=== PATIENT | male | born 1985 | race Caucasian/White ===

== ENCOUNTER → 2017-07-01 12:21 | Outpatient (CLI) | payer OTHER, SELFPAY ==
[2017-07-01 13:07] LABS: Alanine Aminotransferase 44 U/L (12-78); Albumin/Globulin Ratio 0.9 (1.1-1.8); Alkaline Phosphatase 79 U/L (46-116); Aspartate Amino Transferase 22 U/L (15-37); Bilirubin,Total 0.2 mg/dL (0.2-1.0); Blood Urea Nitrogen 11 mg/dL (7-18); Carbon Dioxide 30 mmol/L (21.0-32.0); Chloride 102 mmol/L (98-107); Cholesterol 189 mg/dL (140-200); Creatinine,Serum 1.04 mg/dL (0.70-1.30); Estimated Glomerular Filt Rate 84 ml/min (>60); GFR (African American) 101 ML/MIN (>60); Globulin 4.3 gm/dl (1.3-3.2); Glucose 94 mg/dL (74-106); HDL Cholesterol 38 mg/dL (27-67); LDL Cholesterol 140 mg/dL (0-130); Sodium 137 mmol/L (136-145); Total Protein,Serum 8.3 gm/dL (6.4-8.2); Triglycerides 55 mg/dL (30-200); VLDL Cholesterol 11 mg/dL (0-40)
== END ==
PROVIDERS: PCP Internal Medicine Adolescent Medicine; Visit Provider Internal Medicine Adolescent Medicine
DX: I10 Essential (primary) hypertension (principal)
CPT/HCPCS: 36415; 80053; 80061

== ENCOUNTER → 2018-08-22 08:54 | Outpatient (CLI) | payer OTHER, SELFPAY ==
--- NOTE | 2018-08-22 09:16 | US_ITS ---
US abdomen limited History:Right upper quadrant pain Ordering Physician:Antonio Wei MD Patient Age: 33 years Comparison:None Findings: Pancreas:Not well-demonstrated due to overlying bowel gas Liver:Unremarkable. No obvious mass or abnormal fluid collection. No ductal dilatation Right Kidney:Unremarkable. Normal size and echogenicity. No hydronephrosis Gallbladder:No gallstones, gallbladder wall thickening, pericholecystic fluid, or biliary dilatation. There are several 2 small gallbladder polyps measuring up to 6 mm. Impression: 1. Gallbladder polyps. No stones apparent. No biliary dilatation.
[2018-08-22 09:27] LABS: Basophils # 0.1 K/mm3 (0-0.2); Basophils % 0.8 % (0.1-2.0); Eosinophils # 0.1 K/mm3 (0.0-0.4); Eosinophils % 0.7 % (0.1-12.0); Hematocrit 44.1 % (42.0-52.0); Hemoglobin 15.1 g/dL (14.1-18.0); Lymphocytes # 2.7 K/mm3 (0.7-4.5); Lymphocytes % 34.6 % (10-50); Mean Corpuscular HGB Conc 34.3 g/dL (31.8-35.4); Mean Corpuscular Hemoglobin 27.8 pg (27.0-31.2); Mean Corpuscular Volume 81.1 fl (80-94); Mean Platelet Volume 7.6 fl (7.4-10.4); Monocytes # 0.5 K/mm3 (0.1-1.0); Monocytes % 6.4 % (1.7-9.3); Neutrophils # 4.5 K/mm3 (1.8-7.8); Neutrophils % 57.5 % (37.0-80.0); Platelet Count 232 K/mm3 (142-424); Red Blood Count 5.44 M/mm3 (4.60-6.20); Red Cell Distribution Width 13.9 % (11.5-17.5); White Blood Count 7.8 K/mm3 (4.8-10.8)
[2018-08-22 09:41] LABS: Alanine Aminotransferase 43 U/L (12-78); Alkaline Phosphatase 70 U/L (46-116); Amylase 29 U/L (25-115); Aspartate Amino Transferase 23 U/L (15-37); Bilirubin,Total 0.7 mg/dL (0.2-1.0); Calcium 9.1 mg/dL (8.5-10.1); Carbon Dioxide 29 mmol/L (21.0-32.0); Chloride 102 mmol/L (98-107); Estimated Glomerular Filt Rate 78 ml/min (>60); GFR (African American) 94 ML/MIN (>60); Globulin 4.1 gm/dl (1.3-3.2); Glucose 94 mg/dL (74-106); Lipase 56 u/L (73-393); Sodium 140 mmol/L (136-145); Total Protein,Serum 8.1 gm/dL (6.4-8.2)
[2018-08-22 10:25] LABS: Blood Urea Nitrogen 14 mg/dL (7-18)
== END ==
PROVIDERS: PCP Internal Medicine Adolescent Medicine; Visit Provider Internal Medicine Adolescent Medicine
DX: R10.11 Right upper quadrant pain (principal)
CPT/HCPCS: 36415; 76705; 80053; 82150; 83690; 85025

== ENCOUNTER → 2018-09-07 10:09 | Outpatient (CLI) | payer OTHER, SELFPAY ==
--- NOTE | 2018-09-07 10:20 | NM_ITS ---
NM hepatobiliary w pharm HISTORY: Right upper quadrant pain, abnormal gallbladder ultrasound with polyps ITS.REASON: ABD PAIN ORDERING PHYSICIAN: Antonio Wei MD PATIENT AGE: 33 years COMPARISON: None DOSE: 7.93 mCi technetium Choletec 2.7 mcg of CCK FINDINGS: Homogeneous activity is present within the hepatic parenchyma. Activity is present in the gallbladder by 30 minutes. Activity is present in the small bowel by minutes. The gallbladder ejection fraction is calculated to be 57% The patient did not report pain or other symptoms during CCK infusion. IMPRESSION: Unremarkable hepatobiliary scan and gallbladder ejection fraction. No evidence of common or cystic duct obstruction with normal gallbladder ejection fraction
--- NOTE | 2018-09-07 12:35 | HMH.ITSHM ---
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 [] LISINOPRIL
== END ==
PROVIDERS: PCP Internal Medicine Adolescent Medicine; Visit Provider Internal Medicine Adolescent Medicine
DX: R10.11 Right upper quadrant pain (principal)
CPT/HCPCS: 78227; A9537; J2805

== ENCOUNTER → 2019-06-29 11:29 | Outpatient (CLI) | payer BC, SELFPAY ==
[2019-06-29 12:49] LABS: Basophils # 0.1 K/mm3 (0-0.2); Basophils % 0.8 % (0.1-2.0); Eosinophils # 0.1 K/mm3 (0.0-0.4); Eosinophils % 1.4 % (0.1-12.0); Hematocrit 44.4 % (42.0-52.0); Hemoglobin 15.1 g/dL (14.1-18.0); Lymphocytes # 2.2 K/mm3 (0.7-4.5); Lymphocytes % 30.6 % (10-50); Mean Corpuscular HGB Conc 33.9 g/dL (31.8-35.4); Mean Corpuscular Hemoglobin 27.3 pg (27.0-31.2); Mean Corpuscular Volume 80.6 fl (80-94); Monocytes # 0.4 K/mm3 (0.1-1.0); Monocytes % 6.2 % (1.7-9.3); Neutrophils # 4.3 K/mm3 (1.8-7.8); Platelet Count 222 K/mm3 (142-424); Red Blood Count 5.51 M/mm3 (4.60-6.20); Red Cell Distribution Width 13.7 % (11.5-17.5); White Blood Count 7.1 K/mm3 (4.8-10.8)
[2019-06-29 15:09] LABS: Alanine Aminotransferase 32 U/L (12-78); Albumin Level 4.5 g/dl (3.5-5.0); Albumin/Globulin Ratio 1.5 (1.1-1.8); Alkaline Phosphatase 71 U/L (38-126); Anion Gap 13.5 mEq/L (5-15); Aspartate Amino Transferase 32 U/L (17-59); Bilirubin,Total 0.5 mg/dl (0.2-1.3); Blood Urea Nitrogen 16 mg/dl (9-20); Calcium 9.7 mg/dl (8.4-10.2); Carbon Dioxide 27 mmol/L (22.0-30.0); Chloride 101 mmol/L (98-107); Chol/HDL Ratio 5.4 (1-3.5); Cholesterol 195 mg/dl (140-200); Estimated Glomerular Filt Rate 98 ml/min (>60); GFR (African American) 118 ML/MIN (>60); Globulin 3.1 g/dL (1.3-3.2); Glucose 85 mg/dl (74-100); HDL Cholesterol 36 mg/dl (40-60); Potassium 4.5 mmoL/L (3.5-5.1); Sodium 137 mmol/L (136-145); Total Protein,Serum 7.6 g/dl (6.3-8.2); Triglycerides 69 mg/dl (30-150); VLDL Cholesterol 14 mg/dL (0-40)
[2019-06-29 15:20] LABS: Direct LDL Cholesterol 152.18 mg/dL (100-129)
== END ==
PROVIDERS: Visit Provider Internal Medicine Adolescent Medicine
DX: Z00.00 Encounter for general adult medical examination without abnormal findings (principal); I10 Essential (primary) hypertension
CPT/HCPCS: 36415; 80053; 80061; 85025

== ENCOUNTER 2020-12-20 20:01 | Emergency (ER) | payer BC, SELFPAY ==
[2020-12-20 21:29] VITALS: BP 159/102; PULSE 107; RESP 18; TEMP 36.8; O2SAT 98; BMI 44.3
[2020-12-20 21:38] VITALS: BP 159/102; PULSE 97; RESP 18; TEMP 36.8
--- NOTE | 2020-12-20 21:49 | HMH.EDUTC ---
[facility] Disposition Clinical Impression: Exposure to COVID-19 virus Disposition: Home, Self-Care Condition on Discharge: Good Instructions: DI for COVID-19 (Suspected or Confirmed ), Preventing the Spread of Coronavirus Discharge Instructions Additional Instructions: Drink plenty of fluids. Take tylenol for pain or fever. Return if you begin to have difficulty breathing. Follow up with your regular doctor. GO TO THE ER FOR ANY WORSENING SYMPTOMS Quarantine until you know the results of your covid-19 test. If it is positive, the health department should call you and give you further instructions about your length of Quarantine and other things. Notify your school or workplace of your results and follow their instructions regarding return to work/school. Referrals: Antonio Wei MD [Primary Care Provider] - Time of Disposition: 21:50 Medical Decision Making - Medical Records Medical records reviewed: No: I reviewed the patient's medical records. - Franky Inquiry Pt receiving controlled substance: No Vital Signs: 12/20/20 21:29 12/20/20 21:38 Temperature 98.2 F 98.3 F Temperature Source Oral Pulse Rate 97 H Pulse Rate [Left] 107 H Respiratory Rate 18 18 Blood Pressure 159/102 H Blood Pressure [Right Arm] 159/102 H Blood Pressure Mean [Right Arm] 121 02 Sat by Pulse Oximetry 98 Orders (Tests/Meds): ORDERS Category Date Time Status Covid-19 Nasal PCR ([facility]) Routine Lab 12/20/20 21:33 Received [facility] HPI - General Stated complaint: covid test Time Seen by Provider: 12/20/20 21:50 Mode of Arrival: Ambulatory Source of Information: Patient Limitations: No Limitations Description of Symptoms (Recalled from Triage Doc. by RN): PT IS ASYMPTOMATIC. 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 HEENT Symptoms (Recalled from RN notes): No Resp Symptoms (Recalled from RN notes): No Skin Symptoms (Recalled from RN notes): No MS Symptoms (Recalled from RN notes): No Functional Status (Recalled from RN notes): NA - History of Present Illness Provider Complaint: She is here to be tested for covid. She denies any symptoms. She was exposed at her job. - Related Data Allergies Allergy/AdvReac Type Severity Reaction Status Date / Time atropine Allergy Unknown S-ANAPHYLAX Verified 10/10/18 13:33 [From [facility] (REFORMULATED)] IS chlorpheniramine Allergy Unknown S-ANAPHYLAX Verified 10/10/18 13:33 [From [facility] (REFORMULATED)] IS hyoscyamine Allergy Unknown S-ANAPHYLAX Verified 10/10/18 13:33 [From [facility] (REFORMULATED)] IS pseudoephedrine Allergy Unknown S-ANAPHYLAX Verified 10/10/18 13:33 [From [facility] (REFORMULATED)] IS scopolamine Allergy Unknown S-ANAPHYLAX Verified 10/10/18 13:33 [From [facility] (REFORMULATED)] IS - Worker's Comp Is this a Worker's Comp case?: No H History - Hepatitis A Screen Drug use history?: No High risk sexual behaviors?: No History of sexually transmitted infection?: No Currently employed?: No Childcare worker?: No Do you have indoor plumbing?: Yes Do you have electricity?: Yes Attestation statement:: This patient has been screened for Hepatitis A risk factors. I have reviewed the patient's past medical history: Yes ROS Obtained: Yes All systems reviewed & no additional complaints - Constitutional Constitutional: Reports system reviewed and no additional complaints, except as docu - Eyes Eyes: Reports system reviewed and no additional complaints, except as docu - ENT Ears, Nose, Mouth, and Throat: Reports system reviewed and no additional complaints, except as docu - Cardiovascular Cardiovascular: Reports system reviewed and no additional complaints, except as docu - Respiratory Respiratory: Reports system reviewed and no additional complaints, except as docu - Gastrointestinal Gastrointestingal: Reports: system reviewed and no additional complaints, except as docu Physical Exam - General General appear
== END 2020-12-20 22:09 | disposition home or self-care (01) ==
PROVIDERS: Emergency Provider Nurse Practitioner Family; PCP Internal Medicine Adolescent Medicine
DX: Z20.822 Contact with and (suspected) exposure to COVID-19 (principal)
CPT/HCPCS: 99202; G0463; U0003

== ENCOUNTER → 2022-11-26 12:59 | Outpatient (CLI) | payer OTHER, SELFPAY ==
[2022-11-26 13:33] LABS: Basophils # 0.1 K/mm3 (0-0.2); Basophils % 0.7 % (0.1-2.0); Eosinophils # 0.1 K/mm3 (0.0-0.4); Eosinophils % 1.5 % (0.1-12.0); Hemoglobin 15.1 g/dL (14.1-18.0); Lymphocytes # 2.1 K/mm3 (0.7-4.5); Lymphocytes % 26.6 % (10-50); Mean Corpuscular HGB Conc 32.9 g/dL (31.8-35.4); Mean Corpuscular Hemoglobin 26.6 pg (27.0-31.2); Mean Platelet Volume 8.1 fl (7.4-10.4); Monocytes # 0.6 K/mm3 (0.1-1.0); Monocytes % 6.9 % (1.7-9.3); Neutrophils # 5.2 K/mm3 (1.8-7.8); Neutrophils % 64.3 % (37.0-80.0); Platelet Count 267 K/mm3 (142-424); Red Blood Count 5.68 M/mm3 (4.60-6.20); White Blood Count 8.1 K/mm3 (4.8-10.8)
[2022-11-26 14:33] LABS: Chloride 100 mmol/L (98-107); Sodium 141 mmol/L (136-145)
[2022-11-26 14:36] LABS: Alanine Aminotransferase 26 U/L (12-78); Alkaline Phosphatase 87 U/L (38-126); Anion Gap 9.6 mEq/L (5-15); Aspartate Amino Transferase 26 U/L (17-59); Bilirubin,Total 0.8 mg/dl (0.2-1.3); Blood Urea Nitrogen 14 mg/dl (9-20); Carbon Dioxide 35 mmol/L (22.0-30.0); Estimated Glomerular Filt Rate 96 ml/min (>60); GFR (African American) 116 ML/MIN (>60); Lipase 40 U/L (23-300); Potassium 3.6 mmoL/L (3.5-5.1)
[2022-11-26 14:37] LABS: Albumin Level 4.3 g/dl (3.5-5.0); Albumin/Globulin Ratio 1.4 (1.1-1.8); Calcium 9.5 mg/dl (8.4-10.2); Globulin 3.1 g/dL (1.3-3.2); Glucose 85 mg/dl (74-100); Total Protein,Serum 7.4 g/dl (6.3-8.2)
[2022-11-26 15:09] LABS: Thyroid Stimulating Hormone 0.14 uIU/mL (0.465-4.68)
== END ==
PROVIDERS: PCP Internal Medicine Adolescent Medicine; Visit Provider Physician Assistant
DX: R10.84 Generalized abdominal pain (principal); R19.7 Diarrhea, unspecified
CPT/HCPCS: 36415; 80053; 83690; 84439; 84443; 85025

== ENCOUNTER → 2022-12-14 06:58 | Outpatient (CLI) | payer OTHER, SELFPAY ==
[2022-12-14 07:17] LABS: Adenovirus F 40/41, stool Not Detected (NotDetected); Astrovirus Not Detected (NotDetected); Campylobacter Not Detected (NotDetected); Clostridium Difficile A/B, PCR Not Detected (NotDetected); Cryptosporidium Not Detected (NotDetected); Cyclospora Cayetanesis Not Detected (NotDetected); Entamoeba histolytica Not Detected (NotDetected); Enteroaggregative E coli Not Detected (NotDetected); Enterotoxigenic E coli Not Detected (NotDetected); Giardia lamblia Not Detected (NotDetected); Norovirus Not Detected (NotDetected); Plesimonas Shigalloides, PCR Not Detected (NotDetected); Rotavirus A Not Detected (NotDetected); Salmonella, PCR Not Detected (NotDetected); Sapovirus Not Detected (NotDetected); Shiga-like toxin E coli Not Detected (NotDetected); Shigella Enterovasive E coli Not Detected (NotDetected); Vibrio Cholerae Not Detected (NotDetected); Vibrio, PCR Not Detected (NotDetected); Yersinia Entercolitica, PCR Not Detected (NotDetected)
[2022-12-14 09:00] LABS: Occult Blood,Stool Positive (Negative)
[2022-12-14 13:55] LABS: Enteropathogenic E coli Detected (NotDetected)
[2022-12-17 15:57] LABS: Lactoferrin, Fecal, Quant. 9.03 ug/mL(g) (0.00-7.24)
== END ==
PROVIDERS: PCP Internal Medicine Adolescent Medicine; Visit Provider Nurse Practitioner Family
DX: R10.84 Generalized abdominal pain (principal); R19.7 Diarrhea, unspecified; R19.5 Other fecal abnormalities; A04.0 Enteropathogenic Escherichia coli infection
CPT/HCPCS: 82272; 83630; 87507; G0328

== ENCOUNTER 2023-03-04 08:54 | Day surgery (SDC) | payer OTHER, SELFPAY ==
[2023-03-04] VITALS (7 sets, daily range): BP systolic 112–157; BP diastolic 68–99; PULSE 76–102; RESP 16–18; TEMP 36.3–36.6; O2SAT 92–100; BMI 42.5
--- NOTE | 2023-03-04 09:36 | EXP.ANES.CKL ---
[facility] Disclaimer: The information contained in this section may have been updated after the patient was seen, as this information can be updated by other users. Medical History (Updated 03/04/23 @ 09:14 by Jas Flowers RN) HLD (hyperlipidemia) HTN (hypertension) Surgical History (Updated 03/04/23 @ 09:14 by Jas Flowers RN) History of appendectomy Hx of LASIK Family History (Updated 03/04/23 @ 09:15 by Jas Flowers RN) Other Family history of cancer Family history of diabetes mellitus Family history of heart disease Social History (Updated 03/04/23 @ 09:16 by Jas Flowers RN) Smoking Status: Never smoker alcohol intake: never substance use type: denies use current occupational status: employed Travel in the last 8 weeks: Inside the [place] [facility] Anesthesia Checklist Patient Identification Patient Identification: Arm Band Structural Data Admitted From: Home Planned Operative Procedure/s: colonoscopy Consent for Planned Operative Procedure(s) Verified: Yes Verified Documents: Surgical Consent and History and Physical NPO Status Verified Time NPO: 00:00 Additional verifications Anesthesia Reactions: No Airway Assessment Mallampati Score:: Class II C-Spine Mobility Assessed: Yes TMJ Mobility Assessed: Yes Dentition: Good Dentition Neurological Assessment Level of Consciousness: Awake and Alert Anesthesia Plan Anesthesia Risk discussed: Yes Anesthesia Plan: Verified ASA Class: III Anesthesia Type: MAC
--- NOTE | 2023-03-04 10:31 | P.PCN_ITS ---
Procedure: Date: 03/04/23 Patient Date of :: 1985 Procedure Performed:: Total colonoscopy to terminal ileum with multiple biopsies Indications:: Patient is a 37-year-old male. He was scheduled for screening colonoscopy. Apparently he had some change in bowel habits with diarrhea and mucousy bowel movements. He was diagnosed with enteropathogenic E. coli in November and treated. He has not had return of normal bowel function but his symptoms have improved. He was scheduled for screening colonoscopy with general surgery. Performing Provider:: Valeriy Mendoza MD Referring Provider:: Mikayla Garcia Sedation:: MAC sedation Procedure:: Patient history was obtained and appropriate physical examination was performed. Patient's medications and allergies were reviewed. Informed consent was obtai merry after explaining the benefits, alternatives, and risks of the procedure including, but not limited to, bleeding, perforation, missed lesions, and adverse reaction to anesthesia medications. Patient was transported to endoscopy procedure room. Patient was connected to monitoring devices. Throughout the procedure the patient's blood pressure, pulse, and oxygen saturations were monitored continuously. Patient identification and planned procedure were verified by the staff. Patient was positioned in lateral decubitus position. Digital anorectal exam was performed. Variable stiffness Olympus colonoscope was inserted and advanced under direct visualization to the cecum. Adequacy of the colonic preparation was noted. The colonoscope was advanced a short distance into the terminal ileum. The colonoscope was then slowly withdrawn while carefully examining the color, texture, anatomy, and integrity of the mucosoa circumferentially. Within the rectum retroflexion was performed. Colonoscope was then withdrawn. . Multiple biopsies were obtained in the terminal ileum which appeared normal. There was some mildly inflamed appearing mucosa throughout the colon. This seems to be more prominent in the rectosigmoid. Several biopsies were obtained differentiating right, left, and rectosigmoid colon to assess for microscopic colitis. . Findings:: Findings consistent with resolving diffuse mild colitis. Biopsies performed Recommendations:: Treat according to histopathologic analysis. Complications:: None Estimated blood obtained (mL): 2 Colonoscopy Component Colonoscopy Component Was a colonoscopy performed during today's procedure?: Yes Recommended follow up colonoscopy of at least 10 years?: Yes
--- NOTE | 2023-03-04 11:48 | P.PNANES_ITS ---
[facility] Anesthesia Record Part I Anesthesia Record I Intake, IV Amount: 400 Hydration: Adequate Estimated blood loss (mL): 1 Urine output (mL): 0 Blood Products used (#): none Blood Pressure: 123/76 SaO2: 92 Pulse Rate: 82 Airway Patency: Patent Respiratory Rate: 18 Temperature: 97.8 F Patient is:: Awake and Stable Stable to PACU at:: 09:49
== END 2023-03-04 11:00 | disposition home or self-care (01) ==
PROVIDERS: PCP Internal Medicine Adolescent Medicine; Visit Provider Surgery
PROC: 0DJD8ZZ Inspection of Lower Intestinal Tract, Via Natural or Artificial Opening Endoscopic (ICD-10-PCS; CPT 45378; principal; 2023-03-04 10:30)
DX: Z12.11 Encounter for screening for malignant neoplasm of colon (principal); K63.89 Other specified diseases of intestine; Z86.19 Personal history of other infectious and parasitic diseases
CPT/HCPCS: 45378; J2704

== ENCOUNTER 2023-06-04 08:29 | Outpatient (CLI) | payer OTHER, SELFPAY ==
[2023-06-08 21:09] LABS: Calprotectin, Fecal 17 ug/g (0-120)
[2023-06-10 13:11] LABS: Pancreatic Elastase, Fecal 222 (>200)
== END 2023-06-04 23:59 ==
LOC: LAB 08:31
PROVIDERS: PCP Physician Assistant; Visit Provider Nurse Practitioner
DX: K52.9 Noninfective gastroenteritis and colitis, unspecified (principal); R14.0 Abdominal distension (gaseous); R19.5 Other fecal abnormalities
CPT/HCPCS: 82656; 83993; 87205

== ENCOUNTER 2024-08-17 08:22 | Outpatient (CLI) | payer BC, SELFPAY ==
[2024-08-17 08:50] LABS: Basophils # 0.1 K/mm3 (0-0.2); Basophils % 0.8 % (0.1-2.0); Eosinophils # 0.1 Kmm3 (0.0-0.4); Eosinophils % 1.3 % (0.1-12.0); Hematocrit 44.7 % (42.0-52.0); Hemoglobin 15.1 g/dL (14.1-18.0); Lymphocytes # 2.7 K/mm3 (0.7-4.5); Lymphocytes % 28.7 % (10-50); Mean Corpuscular HGB Conc 33.8 g/dL (31.8-35.4); Mean Corpuscular Hemoglobin 27.8 pg (27.0-31.2); Mean Corpuscular Volume 82.3 fl (80-94); Mean Platelet Volume 9.9 fl (7.4-10.4); Monocytes # 0.9 K/mm3 (0.1-1.0); Monocytes % 9.2 % (1.7-9.3); Neutrophils # 5.7 K/mm3 (1.8-7.8); Neutrophils % 59.8 % (37.0-80.0); Nucleated Red Blood Cells # 0 10^3/uL; Nucleated Red Blood Cells % 0 %; Platelet Count 295 K/mm3 (142-424); Red Blood Count 5.43 M/mm3 (4.60-6.20); Red Cell Distribution Width 13.4 % (11.5-17.5); Red Cell Distribution Width-SD 39.9 fL; White Blood Count 9.5 K/mm3 (4.8-10.8)
[2024-08-17 09:02] LABS: Albumin Level 4.3 g/dl (3.5-5.0); Chloride 103 mmol/L (98-107); Sodium 141 mmol/L (136-145)
[2024-08-17 09:03] LABS: Potassium 3.6 mmoL/L (3.5-5.1)
[2024-08-17 09:05] LABS: Alanine Aminotransferase 44 U/L (12-78); Albumin/Globulin Ratio 1.2 (1.1-1.8); Anion Gap 10.6 mEq/L (5-15); Aspartate Amino Transferase 35 U/L (17-59); Blood Urea Nitrogen 12 mg/dl (9-20); Carbon Dioxide 31 mmol/L (22.0-30.0); Estimated Glomerular Filt Rate 95 ml/min (>60); GFR (African American) 115 ML/MIN (>60); Globulin 3.7 g/dL (1.3-3.2)
[2024-08-17 09:06] LABS: Alkaline Phosphatase 73 U/L (38-126); Bilirubin,Total 0.5 mg/dl (0.2-1.3); Calcium 9.1 mg/dl (8.4-10.2); Chol/HDL Ratio 3.7 (1-3.5); Cholesterol 137 mg/dl (140-200); Glucose 110 mg/dl (74-100); HDL Cholesterol 37 mg/dl (40-60); Triglycerides 57 mg/dl (30-150); VLDL Cholesterol 11 mg/dL (0-40)
[2024-08-17 09:17] LABS: Direct LDL Cholesterol 78.29 mg/dL (100-129)
[2024-08-17 09:36] LABS: Thyroid Stimulating Hormone 1.09 uIU/mL (0.465-4.68)
[2024-08-17 09:49] LABS: Hemoglobin A1C 5.3 % (4.0-6.0)
== END 2024-08-17 23:59 | disposition home or self-care (01) ==
LOC: LAB 08:25
PROVIDERS: PCP Nurse Practitioner Family; Visit Provider Nurse Practitioner Family
DX: E78.2 Mixed hyperlipidemia (principal); I10 Essential (primary) hypertension; R79.89 Other specified abnormal findings of blood chemistry
CPT/HCPCS: 36415; 80053; 80061; 83036; 84443; 85025